=== PATIENT | female | born 1985 | race Hispanic/Latino ===

== ENCOUNTER 2024-05-05 20:28 | Observation (INO) | payer BC ==
[2024-05-05 20:59] VITALS: BMI 40.3
[2024-05-05] MEDS ORDERED: Senokot S 8.6-50 MG TAB PO PRN (21:10)
[2024-05-05] MEDS ORDERED: Acetaminophen 325 MG TAB PO PRN (21:10)
[2024-05-05] MEDS ORDERED: hydrALAZINE 20 MG/ML VIAL SLOW IVP PRN (21:10)
[2024-05-05] MEDS ORDERED: Ondansetron ODT 4 MG TAB PO PRN (21:10)
[2024-05-05] MEDS ORDERED: Calcium Carbonate 500 MG ChewTAB PO PRN (21:10)
[2024-05-05] MEDS ORDERED: Ondansetron PF 4 MG/2 ML Vial IVP PRN (21:10)
[2024-05-05] MEDS: Sodium Chloride 0.9% 1,000 ML IV SCH (21:49)
[2024-05-06] MEDS ORDERED: Insulin Lispro 100 UNIT/ML 10 ML VIAL SC PRN ×2 (01:08)
[2024-05-06] MEDS ORDERED: Glucagon 1 MG/ML KIT IM PRN (01:08)
[2024-05-06] MEDS ORDERED: Dextrose 50% Abboject 50 ML SYRINGE SLOW IVP PRN (01:08)
[2024-05-06] MEDS ORDERED: Dextrose 5% in Water 1,000 ML IV PRN (01:08)
[2024-05-06 04:01] LABS: #Basophils 0.05 10x3/uL (0.0-0.2); %Basophils 0.5 % (0.0-1.0); %Eosinophils 4.8 % (0.0-10.0); %Monocytes 10.1 % (0.0-10.0); %Neutrophils 53.2 % (42.0-75.0); Hemoglobin 14.5 g/dL (12.0-16.0); Mean Corpuscular Hemoglobin 27.2 pg (27.0-31.0); Mean Corpuscular Volume 82.6 fL (78.0-98.0); Mean Platelet Volume 10.6 fL (7.4-10.4); Platelet Count 310 10x3/uL (130-400); RBC Distribution Width 14.9 % (11.5-14.5); Red Blood Cell (RBC) Count 5.33 mill/uL (4.20-5.40)
[2024-05-06 04:17] LABS: ALT (SGPT) 173 U/L (8-55); AST (SGOT) 83 U/L (5-34); Albumin 3.4 g/dL (3.5-5.0); Alkaline Phosphatase 76 U/L (40-110); Anion Gap 12 mmol/L (10-20); BUN (Urea Nitrogen) 10 mg/dL (7.0-18.7); Bilirubin, Total 0.5 mg/dL (0.2-1.2); Calc. Creatinine Clearance 160 mL/min (70-130); Calcium 8.8 mg/dL (7.8-10.44); Carbon Dioxide 24 mmol/L (22-29); Cardiac Risk 5.6 (Less than 4.5); Chloride 105 mmol/L (98-107); Cholesterol 206 mg/dl (< 200 Desired); Estimated GFR 108; Globulin 3.6 g/dL (2.4-3.5); Glucose 150 mg/dL (70-105); HDL Cholesterol 37 mg/dL (>60 Neg Risk); LDL Cholesterol, Calculated 134 mg/dL; Potassium 3.6 mmol/L (3.5-5.1); Sodium 137 mmol/L (136-145); Triglycerides 175 mg/dL (Less than 150)
[2024-05-06 04:22] LABS: Hemoglobin A1c 7.2 % (4.0-6.0)
[2024-05-06] MEDS: Aspirin 81 mg Enteric Coated Tablet PO SCH (08:31)
[2024-05-06] MEDS: Enoxaparin 40 MG (0.4 mL) SYRINGE SC SCH (08:31)
[2024-05-06 16:25] VITALS: BP 156/97; TEMP 97.9
[2024-05-06] MEDS ORDERED: Atorvastatin Calcium 40 MG TAB PO SCH (21:00)
== END 2024-05-06 17:45 | disposition home or self-care (01) ==
LOC: INTOOBSV 20:28 → 2SE 20:28
PROVIDERS: ADMIT Internal Medicine; ATTEND Internal Medicine
PROC: B24BZZZ Ultrasonography of Heart with Aorta (ICD-10-PCS; principal; 2024-05-06)
DX: R29.818 Other symptoms and signs involving the nervous system (principal); R20.2 Paresthesia of skin; I10 Essential (primary) hypertension; E11.9 Type 2 diabetes mellitus without complications; E78.5 Hyperlipidemia, unspecified; E66.01 Morbid (severe) obesity due to excess calories; Z68.41 Body mass index [BMI] 40.0-44.9, adult; Z88.1 Allergy status to other antibiotic agents; Z79.82 Long term (current) use of aspirin; Z79.899 Other long term (current) drug therapy
CPT/HCPCS: 36415; 36416; 70551; 80053; 80061; 83036; 84443; 85025; 93306; 96372; G0378; J1650; J7030